=== PATIENT | female | born 1935 | race Caucasian/White ===

== ENCOUNTER 2017-04-23 16:41 | Emergency (ER) | payer MEDICARE ==
[2017-04-23 19:54] LABS: BASOPHILS 0.2 % (0-2); EOSINOPHILS 1.7 % (0-7); HEMATOCRIT 41.4 % (36.0-48.0); HEMOGLOBIN 14.2 g/dL (12-16); IMMATURE GRANULOCYTES 0.2 % (0-5); LYMPHOCYTES 31.9 % (15-50); MCH 30.7 pg (26.0-34.0); MCHC 34.3 g/dL (31.0-37.0); MCV 89.4 fL (80.0-100.0); MEAN PLATELET VOLUME 11.2 fL (7.4-10.4); MONOCYTES 6.1 % (2-11); NEUTROPHILS 59.9 % (40-80); PLATELET COUNT 190 10x3/uL (130-400); RBC 4.63 10x6/uL (4.00-5.40)
[2017-04-23 21:01] LABS: ERYTHROCYTE SEDIMENTATION RATE 5 mm/hr (0-30)
== END 2017-04-23 21:14 | disposition home or self-care (01) ==
LOC: D.ER 16:41
PROVIDERS: Family Medicine
DX: R51 Headache (principal); I10 Essential (primary) hypertension

== ENCOUNTER 2019-02-21 17:49 | Emergency (ER) | payer MEDICARE ==
[~2019-02-21] VITALS: Ht 160 cm; Wt 56.8 kg
[2019-02-21 17:51] VITALS: Ht 160 cm; Wt 56.8 kg
[2019-02-21] MEDS ORDERED: PRINIVIL10 MG PO (17:52)
[2019-02-21] MEDS ORDERED: SYNTHROID25 MCG PO (17:53)
[2019-02-21] MEDS ORDERED: NORVASC5 MG PO (18:30)
[2019-02-21 18:37] LABS: BASOPHILS 0.4 % (0-2); EOSINOPHILS 3.2 % (0-7); HEMATOCRIT 40.5 % (36.0-48.0); IMMATURE GRANULOCYTES 0.2 % (0-5); LYMPHOCYTES 32.6 % (15-50); MCHC 34.6 g/dL (31.0-37.0); MCV 89.6 fL (80.0-100.0); MEAN PLATELET VOLUME 10.9 fL (7.4-10.4); MONOCYTES 8.6 % (2-11); PLATELET COUNT 214 10x3/uL (130-400); RBC 4.52 10x6/uL (4.00-5.40); RDW 13.8 % (11.5-14.5); WBC 5.3 10x3/uL (4.8-10.8)
[2019-02-21] MEDS ORDERED: LISINOPRIL20 MG PO (18:49)
[2019-02-21 19:12] LABS: ALBUMIN 3.7 g/dL (3.4-5.0); ANION GAP 13.7 mmol/L (8-16); BILIRUBIN - TOTAL 0.4 mg/dL (0.2-1.3); CALCIUM 9.5 mg/dL (8.5-10.1); CARBON DIOXIDE 25.4 mmol/L (21.0-32.0); CREATININE - SERUM 0.9 mg/dL (0.6-1.3); POTASSIUM - SERUM 4.1 mmol/L (3.5-5.1)
[2019-02-21 19:21] LABS: THYROID STIMULATING HORMONE 0.4 uIU/mL (0.36-3.74)
[2019-02-21 20:03] LABS: INR 1.09 (0.85-1.17); PROTIME 13.6 SECONDS (11.6-15.0)
[2019-02-21 20:04] LABS: APTT 30.6 SECONDS (22.8-39.4)
[2019-02-21 20:20] LABS: CKMB 0.9 U/L (0.0-3.6); CREATINE KINASE 40 UL (21-215)
[2019-02-21 20:21] LABS: TROPONIN-I < 0.017 ng/mL (0.000-0.060)
[2019-02-21 20:45] VITALS: BP 143/55
== END 2019-02-21 20:44 | disposition home or self-care (01) ==
LOC: D.ER 17:49
PROVIDERS: Emergency Medicine; Family Medicine
DX: I10 Essential (primary) hypertension (principal)